=== PATIENT | male | born 1985 | race Two or more races ===

== ENCOUNTER 2024-12-09 21:35 | Emergency (ER) | payer MEDICAID, SELFPAY ==
[2024-12-09 21:36] VITALS: BMI 30.7
[2024-12-09 22:12] VITALS: BP 117/80; PULSE 98; RESP 18; TEMP 36.9; O2SAT 98
--- NOTE | 2024-12-09 22:56 | EDNOTE_ITS ---
ED Wound/Laceration-RME/HPI General Chief Complaint: Wound/Laceration Stated Complaint: Left hand lac after a fall Time Seen by Provider: 12/09/24 22:20 Arrival date/time: 12/09/24 21:35 RME / HPI RME / HPI narrative: 39-year-old male patient with no significant medical history, came in for evaluation regarding fall. Patient was running, accidentally sustained tripped and fell, sustaining laceration to the left hand, palmar aspect, and laceration to the right lateral knee. Patient is ambulatory with no limping. Denies any head injury denies any other complaints no medications taken prior to arrival. Related Data Previous Rx's ?Medication ?Instructions ?Recorded acetaminophen 300 mg-codeine 30 mg 1 tab PO Q8H PRN pa in #20 tabs 12/09/24 tablet amoxicillin 875 mg-potassium 1 tab PO BID #20 tabs clavulanate 125 mg tablet Allergies Allergy/AdvReac Type Severity Reaction Status Date / Time NKA* Allergy Uncoded 04/01/10 14:58 Review of Systems Review of Systems Narrative Review of Systems: Review of system reviewed and within normal limits except mentioned in HPI ED Exam Narrative Physical exam: VITAL SIGNS: Reviewed. GENERAL APPEARANCE: Alert and interactive, follows commands, no acute distress, HEAD AND FACE: Non-traumatic. ENT: PERRL, pink conjunctivitis, eyelid no trauma, Mucous membrane moist. NECK: Supple, nontender, no nuchal rigidity. CHEST: No tenderness, no crepitus, no paradoxical movement, no retractions. LUNGS: Clear, well ventilated, symmetric, no rales, no wheezing, no ronchi, no stridor, good breath sounds bilaterally. HEART: Regular rate, regular rhythm, no murmur, no gallops. ABDOMEN: Soft, positive bowel sounds, nondistended, no guarding, nontender, no rebound, no masses, RECTAL: Deferred. GENITAL: Deferred. NEUROLOGICAL: Gross motor function intact sensory function intact, Appropriate for age. MUSCULOSKELETAL: low back nontender, full range of motion. EXTREMITIES: 2 cm irregularly shaped laceration to the left hand palmar aspect, with multiple abrasion to the hand also palmar aspect., full range of motion. Wound looks dirty., 1 cm laceration to the lateral knee, superficial SKIN: Color pink, dry, no rash, no lacerations, no abrasions, no contusions. LYMPHATICS: Deferred. Course Quality Measures none Orders Category Date Time Status ACETAMINOPHEN w/COD 300-30 [Tylenol w/Cod #3] Med 12/09/24 22:55 Once 1 tab PO X1 ONE Amoxicillin/Pot Clav 875 [Augmentin 875] Med 12/09/24 22:55 Once 1 tab PO X1 ONE Tet,Diphth,Pertuss(Acell)-Tdap [Boostrix Vacc] Med 12/09/24 22:55 Once 0.5 ml IMI .ONCE ONE Vital Signs Vital signs: Vital Signs Temperature 98.4 F 12/09/24 22:12 Pulse Rate 98 12/09/24 22:12 Respiratory Rate 18 12/09/24 22:12 Blood Pressure 117/80 12/09/24 22:12 Pulse Oximetry (%) 98 12/09/24 22:12 Oxygen Delivery Method Room Air 12/09/24 22:12 Procedures -ED Laceration Laceration 1: Site: hand Side (If applicable): left Size (cm): 2 Description: irregular and contaminated Depth: simple, single layer Local Anesthetic: lidocaine 1% Amount of anesthesia used (mL): 5 Pre-repair: wound explored, irrigated extensively, deep structures intact and wound margins revised Skin layer closed with: nylon Size (cm): 4-0 Number of sutures: 3 Technique: simple, interrupted Laceration 2: Site: other (Right lateral knee) Size (cm): 1 Description: flap Depth: simple, single layer Local Anesthetic: lidocaine 1% Amount of anesthesia used (mL): 5 Pre-repair: wound explored and wound margins revised Skin layer closed with: nylon Size (cm): 4-0 Number of sutures: 3 Technique: simple, interrupted Wound / Laceration MDM Narrative MDM Narrative:: 39-year-old male patient with no significant medical history, came in for evaluation regarding fall. Patient was running, accidentally sustained tripped and fell, sustaining laceration to the left hand, palmar aspect, and laceration to the right lateral knee. Patient is ambulatory with no limping. Denies any head injury denies any other complaints no medications taken prior to arrival. Wound was thoroughly cleaned, using hydrogen peroxide, Betadine, and a running water. Foreign body were removed, I did not notice any more foreign body prior to suturing of the wound in both hands and lateral knee. See procedure notes. Patient received Tylenol with codeine, Augmentin, and Boostrix Patient and family was strongly advised to return to emergency room right away if you notice puslike drainage or swelling of the hand and lateral knee , fever, and sign of infection. Imaging is not needed at this time, patient is not showing signs sign of fracture. I do not suspect any foreign body also. Patient and family agrees with the plan. Patient data External records reviewed:: None Clinical information provided by:: patient Social determinants that could affect healthcare access:: none Patient has the following chronic illnesses:: None How is presenting disease/condition affected by chronic disease/condition?: no chronic disease Evaluation data The following diagnostics were reviewed and interpreted by me:: other (specify) Lab and/or radiology exams considered but not ordered:: None Interpretation Summary: None Medications / Prescriptions Medications or Prescriptions considered but not ordered:: Plan Medication administrations:: Medication Administration History Discontinued Medications Acetaminophen/Codeine Phosphate (Acetaminophen W/Cod 300-30 Tablet) 1 tab PO X1 ONE Stop: 12/09/24 22:56 Amoxicillin/Clavulanate Potassium (Amoxicillin/Pot Clav 875 Tablet) 1 tab PO X1 ONE Stop: 12/09/24 22:56 Diphtheria/Tetanus/Acell Pertussis (Diphth,Pertuss(Acell),Tet Vac 0.5 Ml Syr- Adult) 0.5 ml IMi .ONCE ONE Stop: 12/09/24 22:56 Boostrix, Augmentin, Tylenol codeine Consultations Consultation(s) initiated? (list below): No Diagnosis Wound Differential Diagnosis: laceration, abrasion and avulsion of skin Most likely diagnosis given after review of the tests above:: Hand laceration, left knee laceration Admission Indicated Admission indicated?: not indicated Admission Request Was there a request for admission?: No Disposition Plan Disposition Plan: Discharge Discharge Attestation Discharge Attestation: The patient and all family members were given an opportunity to ask questions and understood the discharge instructions. Discharge instructions specifically effects, indications for sooner follow up or return to the emergency department, and the expected course of current diagnosis. Patient condition: Stable Discharge Plan Plan Patient Disposition: HOME (Self Care) Disposition Comment: Stable Prescriptions/Referrals Prescriptions/Med Rec: New amoxicillin-pot clavulanate 875-125 mg tablet 1 tab PO BID Qty: 20 0RF acetaminophen-codeine 300-30 mg tablet 1 tab PO Q8H PRN (Reason: pain) Qty: 20 0RF Problem List Clinical Impression: Hand laceration, Knee laceration, Fall Patient/Caregiver Discharge Instructions Discharge Activity: activity as tolerated Education Materials: ED Laceration, Hand: All Closures Additional Instructions: Thank you for the opportunity for serving you today. You are stable for discharged . You are advised to: Follow-up with your PCP in 1 to 2 days Return to ED for worsening of symptoms, swelling of the hand, swelling of the knee, puslike drainage, redness, fever, foul-smelling discharges Increase oral fluids Take medication as prescribed For removal of sutures in 10 days Print Language: [place] Stand Alone Forms: Luly Award Info., Patient Portal Info Letter PA/CHECK WRITING MACHINE OPERATOR Supervising Physician PA/CHECK WRITING MACHINE OPERATOR Supervising Physician: MD Adi
[2024-12-09] MEDS: DIPHTH,PERTUSS(ACELL),TET VAC 0.5 ML SYR- ADULT IMi (23:15)
[2024-12-09] MEDS: ACETAMINOPHEN w/COD 300-30 TABLET 1 TAB PO (23:15)
[2024-12-09] MEDS: AMOXICILLIN/POT CLAV 875 TABLET 1 TAB PO (23:15)
== END 2024-12-09 23:23 | disposition home or self-care (01) ==
PROVIDERS: Emergency Provider Emergency Medicine
DX: S61.412A Laceration without foreign body of left hand, initial encounter (principal); S81.011A Laceration without foreign body, right knee, initial encounter; W01.0XXA Fall on same level from slipping, tripping and stumbling without subsequent striking against object, initial encounter; Y93.02 Activity, running; Z23 Encounter for immunization
CPT/HCPCS: 12002; 90471; 90715; 99283; A9270